=== PATIENT | male | born 1945 | race Caucasian/White ===

== ENCOUNTER → 2020-03-17 | Outpatient (CLI) | payer OTHER ==
[~2020-03-17] MED LIST: CLOP75 PO; Isosorbide Mono30 MG PO; Lithium Carbon150 MG PO; METO25 PO; NITR.4SL SL; OMEGA-3 + D SO1 EACH PO
[2020-03-17 20:24] LABS: BASOPHILS ABSOLUTE AUTO 0.05 K/mm3 (0.00-0.23); BASOPHILS PERCENT AUTO 1 % (0-2); EOSINOPHILS ABSOLUTE AUTO 0.18 K/mm3 (0.00-0.68); EOSINOPHILS PERCENT AUTO 5 % (0-6); Hematocrit 41.1 % (37.0-53.0); IMMATURE GRAN ABSOLUTE AUTO 0.02 K/mm3 (0.00-0.10); IMMATURE GRAN PERCENT AUTO 1 % (0-1); LYMPHOCYTES ABSOLUTE AUTO 1.08 K/mm3 (0.84-5.20); LYMPHOCYTES PERCENT AUTO 30 % (21-46); MONOCYTES ABSOLUTE AUTO 0.33 K/mm3 (0.16-1.47); MONOCYTES PERCENT AUTO 9 % (4-13); Mean Corpuscular HGB 34.2 pg (26.0-34.0); Mean Corpuscular HGB Conc 34.1 g/dL (31.5-36.5); Mean Corpuscular Volume 101 fL (80-100); Mean Platelet Volume 9.9 fL (9.1-12.4); NEUTROPHILS ABSOLUTE AUTO 1.99 K/mm3 (1.96-9.15); NEUTROPHILS PERCENT AUTO 55 % (41-73); Platelet Count 246 K/mm3 (150-400); RDW Coefficient Variation 12.9 % (11.7-14.2); RDW Standard Deviation 48.1 fL (35.1-46.3); Red Blood Cell Count 4.09 M/mm3 (4.30-5.90); White Blood Cell Count 3.65 K/mm3 (4.00-11.30)
== END ==
LOC: LAB SHORT 15:30 → LAB 15:30
PROVIDERS: Family Medicine
DX: Z12.5 Encounter for screening for malignant neoplasm of prostate (principal); I10 Essential (primary) hypertension; E78.5 Hyperlipidemia, unspecified
CPT/HCPCS: 85025

== ENCOUNTER 2020-08-06 09:46 | Day surgery (SDC) | payer OTHER ==
[~2020-08-06] VITALS: Ht 175.3 cm; Wt 74.1 kg
[~2020-08-06 09:46] MED LIST changes: -OMEGA-3 + D SO1 EACH PO
[2020-08-06] MEDS ORDERED: OMEGA-3 + D SO1 EACH PO (10:21)
--- NOTE | 2020-08-06 17:12 | NUR ---
PATIENT RETURNS FROM [facility] SITTING UP IN THE BED WITH SIDE RAILS UP . TR BAND IN [place] TO THE RIGHT RADIAL WITH 11 ML OF AIR IN THE BAND. MONITOR APPLIED AND SBAR RECEIVED FROM JO ANN ROSAS AT [facility] BEDSIDE. LAST ACT WAS 246 AND 2,000 UNITS OF HEPARIN WAS GIVEN AFTER THAT RESULT. ORDERED TO WAIT TWO HOURS (UNTIL 184) UNTIL RELEASING AIR FROM THE TR BAND. PATIENT AWAKE AND CALLING ON CELL PHONE. PATEINT VOIDED PER URINAL.
--- NOTE | 2020-08-06 17:47 | NUR ---
1735 SECOND TR BAND ADDEDD WHEN CHEK REVEALED FULLNESS DISTAL TO THE FIRST TR BAND. MANUAL PRESSURE HELD FOR 10 MINUTES AND THE A SECOND TR BAND WAS APPLIED. TEACHING DONE WITH PATIENT AND PATIENT KEPT INFORMED OF TIMELINE FOR POTENTIAL DISCHARGE.
--- NOTE | 2020-08-06 18:09 | NUR ---
PATIENT TRANSFERED TO PCU #7 FOR THE REMAINDER OF HIS STAY, WILL BE DISCHARGED LATER AFTER TR BAND REMOVED.
--- NOTE | 2020-08-06 18:36 | NUR ---
pt [facility], he has two tr bands on right hand one due to swelling with a small amount of air, will start to deflate in 15 minutes. v.s. stable. afebrile, iv site is clear and patent, infusing ns to complete current bag. is able to go home tonight after tr band recovered. call light in reach, water brought, tray ordered.
[2020-08-06 19:59] LABS: CHOL/HDL RATIO 4.7; Cholesterol 312 mg/dL (50-200); HDL Cholesterol 67 mg/dL (>39); LDL/HDL RATIO 3.5; Low Density Lipoprotein Chol 237 mg/dL (0-110); Triglycerides 40 mg/dL (30-160); Very Low Density Lipoprot Chol 8 mg/dL (6-32)
--- NOTE | 2020-08-06 21:35 | NUR ---
UPDATE PT HAS DENIED ANY CP OR PRESSURE. O2 SATS MAINTAINED >92% ON RM AIR. OP SITE HAS NO S/S OF BLEEDING AND TR BAND OFF OF 2044. DR. AUGUSTE CONSULTED PT AT BEDSIDE AND DISCHARGE INSTRUCTIONS HAVE GONE OVER W PT AND GOOD UNDERSTANDING HAS BEEN ESTABLISHED. ARMBOARD IN PLACE AND PT AWAITING FOR TO CALL FOR RIDE. PT REPORTS BEING PLEASED W [facility] C[facility] THUS FAR.
== END 2020-08-06 22:08 | disposition home or self-care (01) ==
LOC: MHTC 09:46 → PCU 17:02 → MHTC 22:08
PROVIDERS: Internal Medicine Cardiovascular Disease
DX: I25.118 Atherosclerotic heart disease of native coronary artery with other forms of angina pectoris (principal); I25.82 Chronic total occlusion of coronary artery; I10 Essential (primary) hypertension; E78.2 Mixed hyperlipidemia; Z95.5 Presence of coronary angioplasty implant and graft; Z79.02 Long term (current) use of antithrombotics/antiplatelets; Z88.1 Allergy status to other antibiotic agents; Z88.0 Allergy status to penicillin; Z88.4 Allergy status to anesthetic agent; Z88.2 Allergy status to sulfonamides; Z88.8 Allergy status to other drugs, medicaments and biological substances
CPT/HCPCS: 36415; 76937; 80061; 85347; 93458; 93571; 93572; 99152; 99153; C1769; C1887; C1894; J1644; J2250; J3010; J7030; J7050; Q9967